=== PATIENT | female | born 1990 | race Caucasian/White ===

== ENCOUNTER 2017-01-14 12:46 | Emergency (ER) | payer MEDICAID ==
[~2017-01-14] VITALS: Ht 167.6 cm; Wt 103.1 kg
[2017-01-14 12:50] VITALS: BP 120/83
[2017-01-14] MEDS ORDERED: DEXAMETHASONE 4 MG TABLET PO ONE (13:00)
[2017-01-14] MEDS ORDERED: KETOROLAC 30 MG/1 ML IM ONE (13:00)
[2017-01-14] MEDS ORDERED: KETOROLAC 30 MG/1 ML ONE (13:27)
[2017-01-14] MEDS ORDERED: DEXAMETHASONE 4 MG TABLET ONE (13:27)
== END 2017-01-14 13:41 | disposition home or self-care (01) ==
LOC: ED 13:35
DX: J02.0 Streptococcal pharyngitis (principal); J04.0 Acute laryngitis
CPT/HCPCS: 96372; 99283; J1885

== ENCOUNTER 2018-03-25 15:17 | Emergency (ER) | payer MEDICAID ==
[~2018-03-25] VITALS: Ht 172.7 cm; Wt 103.8 kg
[2018-03-25 15:22] VITALS: BP 30/80
[2018-03-25] MEDS ORDERED: HYDR-3342 PO (15:30)
[2018-03-25] MEDS ORDERED: SERT25TA PO (15:30)
[2018-03-25] MEDS ORDERED: LORazepam 1MG TABLET ONE (15:53)
[2018-03-25] MEDS ORDERED: LORazepam 1MG TABLET PO ONE (16:00)
== END 2018-03-25 16:23 | disposition home or self-care (01) ==
LOC: ED 15:20
DX: F41.1 Generalized anxiety disorder (principal)
CPT/HCPCS: 99283; 99284